=== PATIENT | male | born 1950 | race Caucasian/White ===

== ENCOUNTER 2016-10-21 08:26 | Day surgery (SDC) | payer BC ==
--- NOTE | ~2016-10-21 | EGD ---
EGD REPORT [facility] [address] [address] NAME: BETZY STEWARD : [birth year] [place] [facility] [place] [id number] AGE: 66 ADM/REG DATE : 10/21/16 MR#: [id number] REPORT SERV DATE: 10/21/16 DICTATED BY: ANUP ORDONEZ DATE: 10/21/16 REPORT STATUS : Draft TRANSCRIBED BY: [facility] DATE: 10/21/16 End[facility] Center Patient Name: Betzy Steward Date of : 1950 Attending MD: ANUP ORDONEZ MD Procedure Date No Time: 10/21/2016 Procedure: Colonoscopy Indications: Screening for colorectal malignant neoplasm Referring MD: ESTEFANIA CHAMBERS MD Medicines: Monitored Anesthesia Care Complications: No immediate complications. Procedure: Pre-Anesthesia Assessment: - ASA Grade Assessment: III - A patient with severe systemic disease. After I obtained informed consent, the scope was passed under direct vision. Throughout the procedure, the patient's blood pressure, pulse, and oxygen saturations were monitored continuously. The CF [id number] was introduced through the anus and advanced to the cecum, identified by appendiceal orifice and ileocecal valve. The colonoscopy was performed without difficulty. The patient tolerated the procedure well. The quality of the bowel preparation was good. Findings: The digital rectal exam was normal. Pertinent negatives include no palpable rectal lesions. A sessile polyp was found in the cecum. The polyp was 6 mm in size. The polyp was removed with a cold biopsy forceps. Resection and retrieval were complete. A sessile polyp was found in the rectum. The polyp was 5 mm in size. The polyp was removed with a cold biopsy forceps. Resection and retrieval were complete. Hemorrhoids were found during retroflexion and were moderate. Multiple diverticula were found in the sigmoid colon, in the descending colon and in the transverse colon. Impression: - One 6 mm polyp in the cecum. Resected and retrieved. - One 5 mm polyp in the rectum. Resected and retrieved. - Hemorrhoids. - Diverticulosis in the sigmoid colon, in the descending colon and in the transverse colon. Recommendation: - Patient has a contact number available for emergencies. The signs and symptoms of potential delayed EGD REPORT [address] [place]. [address] NAME: BETZY STEWARD : [birth year] [place] [facility] [place] [id number] AGE: 66 ADM/REG DATE : 10/21/16 MR#: [id number] REPORT SERV DATE: 10/21/16 DICTATED BY: ANUP ORDONEZ DATE: 10/21/16 REPORT STATUS : Draft TRANSCRIBED BY: [employer] DATE: 10/21/16 complications were discussed with the patient. Return to normal activities tomorrow. Written discharge instructions were provided to the patient. - Regular diet. - Continue present medications. - Repeat colonoscopy for surveillance based on pathology results. - Perform an upper GI endoscopy at the next available appointment. Procedure Code(s): --- Professional --- 76335, Colonoscopy, flexible, proximal to splenic flexure; with biopsy, single or multiple Diagnosis Code(s): --- Professional --- K62.1, Rectal polyp D12.0, Benign neoplasm of cecum K64.9, Unspecified hemorrhoids K57.30, Diverticulosis of large intestine without perforation or abscess without bleeding Z12.11, Encounter for screening for malignant neoplasm of colon CPT copyright 2013 [employer]. All rights reserved. The codes documented in this report are preliminary and upon yeast fermentation attendant review may be revised to meet current compliance requirements. ANUP ORDONEZ MD 10/21/2016 10:45 AM This report has been signed electronically. Number of Addenda: 0 Note Initiated On: 10/21/2016 10:15 AM Scope Withdrawal Time 0 hours 8 minutes 11 seconds [id number] [id number]
[~2016-10-21 08:26] MED LIST: ADVIL PO; ARIMIDEX1 PO; ASAB PO; DHE1 PO; FERGON240 MG PO; GLUCOTRO10 PO; GLUCPH PO; LEVSINTAB SL; NEUR300 PO; PRILOSEC40 MG PO; VITAMIN D3; [UNRECOGNIZED DRUG - OTHER] PO; [UNRECOGNIZED DRUG - OTHER] PO; [UNRECOGNIZED DRUG - OTHER] PO
== END 2016-10-21 23:59 | disposition home or self-care (01) ==
LOC: DMU 08:26
PROVIDERS: Internal Medicine Gastroenterology
PROC: 0DBP8ZX Excision of Rectum, Via Natural or Artificial Opening Endoscopic, Diagnostic (ICD-10-PCS; 2016-10-21)
PROC: 0DBH8ZX Excision of Cecum, Via Natural or Artificial Opening Endoscopic, Diagnostic (ICD-10-PCS; principal; 2016-10-21 10:00)
DX: Z12.11 Encounter for screening for malignant neoplasm of colon (principal); D12.0 Benign neoplasm of cecum; D12.8 Benign neoplasm of rectum; K64.9 Unspecified hemorrhoids; K57.30 Diverticulosis of large intestine without perforation or abscess without bleeding; E11.9 Type 2 diabetes mellitus without complications; G47.33 Obstructive sleep apnea (adult) (pediatric); Z79.82 Long term (current) use of aspirin; Z79.1 Long term (current) use of non-steroidal anti-inflammatories (NSAID); Z79.899 Other long term (current) drug therapy; Z90.89 Acquired absence of other organs; Z99.89 Dependence on other enabling machines and devices; Z98.890 Other specified postprocedural states; Z90.49 Acquired absence of other specified parts of digestive tract
CPT/HCPCS: 82962; 88305